=== PATIENT | female | born 1975 | race Caucasian/White ===

== ENCOUNTER 2019-12-03 17:19 | Emergency (ER) | payer MEDICAID, OTHER ==
[2019-12-03 17:27] VITALS: TEMP 98
[2019-12-03 17:41] LABS: Basophils % (A) 0 %; Eosinophils # (A) 0.2 k/uL (0-0.7); Eosinophils % (A) 2 %; HGB 13.3 gm/dL (11.4-16.0); Lymphocytes # (A) 2.9 k/uL (1.0-4.8); Lymphocytes % (A) 29 %; MCH 29.4 pg (25.0-35.0); MCHC 34.9 g/dL (31.0-37.0); MCV 84.1 fL (80.0-100.0); Mean Platelet Volume 7.3; Monocytes # (A) 0.5 k/uL (0-1.0); Monocytes % (A) 5 %; Neutrophils # (A) 6.1 k/uL (1.3-7.7); Neutrophils % (A) 62 %; Platelet Count 446 k/uL (150-450); RBC 4.52 m/uL (3.80-5.40); RDW 12.7 % (11.5-15.5); WBC 9.9 k/uL (3.8-10.6)
[2019-12-03] MEDS ORDERED: ASPIRIN 81 MG PO STA (17:43)
[2019-12-03] MEDS ORDERED: FAMOTIDINE 20 MG/2 ML VIAL IV STA (17:43)
[2019-12-03 17:51] LABS: ALT 23 U/L (4-34); AST 21 U/L (14-36); African American GFR (CKD) >90 (>60 ml/min/1.73 sqM); Albumin 4.4 g/dL (3.5-5.0); Alkaline Phosphatase 79 U/L (38-126); Anion Gap 9 mmol/L; Blood Urea Nitrogen 15 mg/dL (7-17); Calcium 9.7 mg/dL (8.4-10.2); Carbon Dioxide 27 mmol/L (22-30); Chloride 103 mmol/L (98-107); Glucose 105 mg/dL (74-99); Magnesium 2.2 mg/dL (1.6-2.3); Non-African American GFR(CKD) 89 (>60 ml/min/1.73 sqM); Potassium 3.9 mmol/L (3.5-5.1); Sodium 139 mmol/L (137-145); Total Bilirubin 0.4 mg/dL (0.2-1.3); Total Protein 7.7 g/dL (6.3-8.2)
[2019-12-03 18:00] LABS: INR 0.9 (<1.2); Prothrombin Time 9.5 sec (9.0-12.0)
--- NOTE | 2019-12-03 18:01 | XR ---
EXAMINATION TYPE: XR chest 2V DATE OF EXAM: 12/03/2019 COMPARISON: NONE HISTORY: Chest pain TECHNIQUE: Frontal and lateral views of the chest are obtained. FINDINGS: There are overlying cardiac leads. No airspace disease, pneumothorax, or pleural effusion. Cardiac mediastinal silhouette, pulmonary vascularity and alexandro within normal limits. Patient is rota poncho. IMPRESSION: No acute cardiopulmonary process.
[2019-12-03 18:06] LABS: Partial Thromboplastin Time 21.3 sec (22.0-30.0)
--- NOTE | 2019-12-03 19:10 | ED ---
General Adult HPI - General Source: family Mode of arrival: ambulatory Limitations: no limitations <Rosibel Hernandez - Last Filed: 12/03/19 19:06> <Jayne Moise - Last Filed: 12/03/19 21:15> - General Chief complaint: Chest Pain Stated complaint: Chest pain Time Seen by Provider: 12/03/19 17:20 - History of Present Illness Initial comments: 44 year-old female patient presents to the emergency department today for evaluation of chest pain. 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 States that it persisted for quite some time. States she did have some shortness of breath and sweating with this. Denies any nausea or vomiting. Denies any radiation of the pain down her arms or to her back. Denies dizziness or weakness. Patient has a relatively benign past medical history. Family history of hypertension but no coronary artery disease that she knows of. She states that she quit smoking about 10 years ago. Patient denies any recent rash, fever, chills, cough, abdominal pain, diarrhea, constipation, back pain, numbness, tingling, hematuria, dysuria, urinary urgency, urinary frequency, headache, visual changes, or any other complaints. (Rosibel Hernandez) - Related Data Home Medications Medication Instructions Recorded Confirmed Acetaminophen [Tylenol Extra 1,000 mg PO ONCE PRN 12/03/19 12/03/19 Strength] [id number] 2 tab PO ONCE PRN 12/03/19 12/03/19 [Excedrin] Levothyroxine Sodium [Synthroid] 88 mcg PO DAILY 12/03/19 12/03/19 Allergies Allergy/AdvReac Type Severity Reaction Status Date / Time erythromycin base Allergy Rapid Verified 12/03/19 19:08 Heart Rate Penicillins Allergy Rash/Hives Verified 12/03/19 19:08 trovafloxacin [From Trovan] Allergy Rash/Hives Verified 12/03/19 19:08 Review of Systems ROS Other: All systems not noted in ROS Statement are negative. <Rosibel Hernandez - Last Filed: 12/03/19 19:06> ROS Other: All systems not noted in ROS Statement are negative. <Jayne Moise - Last Filed: 05/06/20 21:15> ROS Statement: Those systems with pertinent positive or pertinent negative responses have been documented in the HPI. Past Medical History Past Medical History: Thyroid Disorder History of Any Multi-Drug Resistant Organisms: None Reported Past Surgical History: Hernia Repair, Tonsillectomy Smoking Status: Never smoker Past Alcohol Use History: None Reported Past Drug Use History: None Reported <Rosibel Hernandez M - Last Filed: 12/03/19 19:06> General Exam Limitations: no limitations General appearance: alert, in no apparent distress, other (This is a well- developed, well-nourished adult female patient in no acute distress. Vital signs upon presentation are temperature 98.0F, pulse 84, respirations 18, blood pressure 141/97, pulse ox 98% on room air.) ENT exam: Present: normal exam, normal oropharynx, mucous membranes moist Respiratory exam: Present: normal lung sounds bilaterally. Absent: respiratory distress, wheezes, rales, rhonchi, stridor Cardiovascular Exam: Present: regular rate, normal rhythm, normal heart sounds. Absent: systolic murmur, diastolic murmur, rubs, gallop, clicks GI/Abdominal exam: Present: soft, normal bowel sounds. Absent: distended, tenderness, guarding, rebound, rigid Neurological exam: Present: alert, oriented X3, CN II-XII intact Psychiatric exam: Present: normal affect, normal mood Skin exam: Present: warm, dry, intact, normal color. Absent: rash <Rosibel Hernandez M - Last Filed: 12/03/19 19:06> Course Vital Signs 12/03/19 12/03/19 12/03/19 17:20 17:22 17:27 Temperature 98.0 F Pulse Rate 84 Pulse Rate [ 80 Refrigeration Unit Repairer ] Respiratory 18 Rate Blood Pressure 141/97 O2 Sat by Pulse 98 98 Oximetry 12/03/19 12/03/19 12/03/19 17:30 17:40 17:50 Temperature Pulse Rate 80 77 Pulse Rate [ Refrigeration Unit Repairer ] Respiratory 13 9 L Rate Blood Pressure 141/97 135/80 135/80 O2 Sat by Pulse 100 100 Oximetry 12/03/19 12/03/19 12/03/19 18:00 18:10 18:13 Temperature Pulse Rate 74 74 79 Pulse Rate [ Refrigeration Unit Repairer ] Respiratory 8 L 6 L Rate Blood Pressure 135/80 127/72 O2 Sat by Pulse 100 100 Oximetry 12/03/19 12/03/19 12/03/19 18:20 18:30 18:40 Temperature Pulse Rate 74 79 76 Pulse Rate [ Refrigeration Unit Repairer ] Respiratory 13 17 5 L Rate Blood Pressure 127/72 127/72 136/81 O2 Sat by Pulse 100 100 100 Oximetry 12/03/19 12/03/19 12/03/19 18:50 19:00 19:10 Temperature Pulse Rate 76 82 75 Pulse Rate [ Refrigeration Unit Repairer ] Respiratory 14 12 21 Rate Blood Pressure 136/81 136/81 159/96 O2 Sat by Pulse 99 100 99 Oximetry 12/03/19 12/03/19 12/03/19 19:20 19:30 19:40 Temperature Pulse Rate 72 76 84 Pulse Rate [ Refrigeration Unit Repairer ] Respiratory 11 L 32 H 31 H Rate Blood Pressure 159/96 144/78 144/82 O2 Sat by Pulse 100 99 100 Oximetry 12/03/19 12/03/19 12/03/19 19:50 20:00 20:10 Temperature Pulse Rate 82 78 74 Pulse Rate [ Refrigeration Unit Repairer ] Respiratory 17 9 L 10 L Rate Blood Pressure 144/82 144/82 130/62 O2 Sat by Pulse 98 97 98 Oximetry 12/03/19 12/03/19 12/03/19 20:20 20:30 20:40 Temperature Pulse Rate 76 79 76 Pulse Rate [ Refrigeration Unit Repairer ] Respiratory 18 18 20 Rate Blood Pressure 130/62 130/62 122/82 O2 Sat by Pulse 97 97 98 Oximetry 12/03/19 20:50 Temperature Pulse Rate 75 Pulse Rate [ Refrigeration Unit Repairer ] Respiratory 13 Rate Blood Pressure 122/82 O2 Sat by Pulse 99 Oximetry EKG Findings - EKG Comments: EKG Findings:: EKG obtained at 1725 shows normal sinus rhythm with a ventricular rate of 82, DC interval 124, QRS duration 80, QT 378, QTC 441. No evidence of ST elevation or depression. <Rosibel Hernandez - Last Filed: 12/03/19 19:06> Medical Decision Making - Lab Data Result diagrams: 12/03/19 17:29 12/03/19 17:29 <Rosibel Hernandez - Last Filed: 12/03/19 19:06> - Lab Data Result diagrams: 12/03/19 17:29 12/03/19 17:29 <Jayne Moise - Last Filed: 12/03/19 21:15> - Medical Decision Making The patient was signed out to me. I did review the patient's laboratory studies. A second troponin was obtained on the patient which was negative. I did discuss his results with the patient. This time she'll be discharged home. She is instructed follow up with her primary care physician. I did provide her with information for the [facility]. She has any new or worsening symptoms she should return to the emergency room. The patient was in agreement treatment plan she was discharged home in stable condition (Jayne Moise) - Lab Data Lab Results 12/03/19 12/03/19 12/03/19 Range/Units 17:29 17:29 17:29 WBC 9.9 (3.8-10.6) k/uL RBC 4.52 (3.80-5.40) m/uL Hgb 13.3 (11.4-16.0) gm/dL Hct 38.0 (34.0-46.0) % MCV 84.1 (80.0-100.0) fL MCH 29.4 (25.0-35.0) pg MCHC 34.9 (31.0-37.0) g/dL RDW 12.7 (11.5-15.5) % Plt Count 446 (150-450) k/uL Neutrophils % 62 % Lymphocytes % 29 % Monocytes % 5 % Eosinophils % 2 % Basophils % 0 % Neutrophils # 6.1 (1.3-7.7) k/uL Lymphocytes # 2.9 (1.0-4.8) k/uL Monocytes # 0.5 (0-1.0) k/uL Eosinophils # 0.2 (0-0.7) k/uL Basophils # 0.0 (0-0.2) k/uL PT 9.5 (9.0-12.0) sec INR 0.9 (<1.2) APTT 21.3 L (22.0-30.0) sec Sodium 139 (137-145) mmol/L Potassium 3.9 (3.5-5.1) mmol/L Chloride 103 (98-107) mmol/L Carbon Dioxide 27 (22-30) mmol/L Anion Gap 9 mmol/L BUN 15 (7-17) mg/dL Creatinine 0.80 (0.52-1.04) mg/dL Est GFR (CKD-EPI)AfAm >90 (>60 ml/min/1.73 sqM) Est GFR (CKD-EPI)NonAf 89 (>60 ml/min/1.73 sqM) Glucose 105 H (74-99) mg/dL Calcium 9.7 (8.4-10.2) mg/dL Magnesium 2.2 (1.6-2.3) mg/dL Total Bilirubin 0.4 (0.2-1.3) mg/dL AST 21 (14-36) U/L ALT 23 (4-34) U/L Alkaline Phosphatase 79 (38-126) U/L Troponin I (0.000-0.034) ng/mL Total Protein 7.7 (6.3-8.2) g/dL Albumin 4.4 (3.5-5.0) g/dL Lipase 120 (23-300) U/L 12/03/19 12/03/19 Range/Units 17:29 20:26 WBC (3.8-10.6) k/uL RBC (3.80-5.40) m/uL Hgb (11.4-16.0) gm/dL Hct (34.0-46.0) % MCV (80.0-100.0) fL MCH (25.0-35.0) pg MCHC (31.0-37.0) g/dL RDW (11.5-15.5) % Plt Count (150-450) k/uL Neutrophils % % Lymphocytes % % Monocytes % % Eosinophils % % Basophils % % Neutrophils # (1.3-7.7) k/uL Lymphocytes # (1.0-4.8) k/uL Monocytes # (0-1.0) k/uL Eosinophils # (0-0.7) k/uL Basophils # (0-0.2) k/uL PT (9.0-12.0) sec INR (<1.2) APTT (22.0-30.0) sec Sodium (137-145) mmol/L Potassium (3.5-5.1) mmol/L Chloride (98-107) mmol/L Carbon Dioxide (22-30) mmol/L Anion Gap mmol/L BUN (7-17) mg/dL Creatinine (0.52-1.04) mg/dL Est GFR (CKD-EPI)AfAm (>60 ml/min/1.73 sqM) Est GFR (CKD-EPI)NonAf (>60 ml/min/1.73 sqM) Glucose (74-99) mg/dL Calcium (8.4-10.2) mg/dL Magnesium (1.6-2.3) mg/dL Total Bilirubin (0.2-1.3) mg/dL AST (14-36) U/L ALT (4-34) U/L Alkaline Phosphatase (38-126) U/L Troponin I <0.012 <0.012 (0.000-0.034) ng/mL Total Protein (6.3-8.2) g/dL Albumin (3.5-5.0) g/dL Lipase (23-300) U/L Disposition <Rosibel Hernandez - Last Filed: 12/03/19 19:06> Is patient prescribed a controlled substance at d/c from ED?: No Time of Disposition: 21:15 <Jayne Moise - Last Filed: 12/03/19 21:15> Clinical Impression: Chest pain Disposition: HOME SELF-CARE Condition: Stable Instructions (If sedation given, give patient instructions): Chest Pain (ED) Additional Instructions: Please follow up with your primary care doctor. Return to the emergency room for any new or worsening symptoms Referrals: Nonstaff,Physician [Primary Care Provider] - 1-2 days [facility] [Provider Group] - 1-2 days
[2019-12-03 21:29] VITALS: RESP 18
[2019-12-03 21:40] VITALS: BP 116/76; PULSE 77
== END 2019-12-03 21:35 | disposition home or self-care (01) ==
LOC: EC 17:19
DX: R07.9 Chest pain, unspecified (principal); E07.9 Disorder of thyroid, unspecified; Z79.890 Hormone replacement therapy; Z88.0 Allergy status to penicillin; Z88.1 Allergy status to other antibiotic agents; Z87.891 Personal history of nicotine dependence
CPT/HCPCS: 36415; 71046; 80053; 83690; 83735; 84484; 85025; 85610; 85730; 93005; 96374; 99285

== ENCOUNTER → 2022-07-05 | Outpatient (CLI) | payer MEDICAID ==
[2022-07-05 18:43] LABS: HCT 36.7 % (37.2-46.3); HGB 12.3 g/dL (12.0-15.0); MCH 28.2 pg (27.0-32.0); MCHC 33.5 g/dL (32.0-37.0); MCV 84.2 fL (80.0-97.0); Mean Platelet Volume 10.2 fL (9.5-12.2); NRBC Per 100 WBC 0 /100 WBCS (0.0-0.0); Platelet Count 326 X 10*3/uL (140-440); RBC 4.36 X 10*6/uL (4.10-5.20); RDW 12.6 % (11.5-14.5); WBC 7.26 X 10*3/uL (4.50-10.00)
[2022-07-05 19:27] LABS: African American GFR (CKD) 109.6 (60.0-200.0); Albumin 4.1 g/dL (3.8-4.9); Albumin/Globulin Ratio 1.64 (1.60-3.17); BUN/Creat Ratio 16.44 Ratio (12.00-20.00); Blood Urea Nitrogen 12.3 mg/dL (9.0-27.0); Calcium 9.7 mg/dL (8.7-10.3); Carbon Dioxide 28.5 mmol/L (20.0-27.5); Globulin 2.5 g/dL (1.6-3.3); Non-African American GFR(CKD) 94.6 (60.0-200.0); Potassium 4.2 mmol/L (3.5-5.5); T4, Free (Free Thyroxine) 1.6 ng/dL (0.800-1.800); Total Bilirubin 0.3 mg/dL (0.30-1.20); Total Protein 6.6 g/dL (6.2-8.2)
== END | disposition home or self-care (01) ==
LOC: LABWHC1 11:44
PROVIDERS: ATTEND Internal Medicine
DX: N39.0 Urinary tract infection, site not specified (principal)
CPT/HCPCS: 36415; 80053; 84439; 84443; 85027